=== PATIENT | female | born 1990 | race Caucasian/White ===

== ENCOUNTER 2017-12-15 10:00 | Inpatient (IN) | payer OTHER ==
[~2017-12-15] VITALS: Ht 160 cm; Wt 63.5 kg
[~2017-12-15 10:00] MED LIST: CIPROFLOXACIN500 M1 PO; DAYSEE 0.15-0.1 EACH PO; HYDROCODON-ACE1 EAC7; HYDROCODONE-APA1 TA1 PO; IBUPROFEN 600600 M1 PO; IRON325; PEPCID20 MG PO; PRENATAL MULTI1 EAC3 PO; TRINATE TABLET1 TAB PO; VICODIN 5-3001 EACH; ZOFRAN ODT4 MG PO; ZOFRAN4 MG PO
[2017-12-15 10:09] VITALS: BP 123/63
[2017-12-15 11:00] LABS: ABSOLUTE BASOPHILS 0.1 thou/uL (0.0-0.2); ABSOLUTE EOSINOPHILS 0.1 thou/uL (0.0-0.7); ABSOLUTE LYMPHOCYTES 2.2 thou/uL (0.8-5.3); ABSOLUTE MONOCYTES 0.6 thou/uL (0.0-1.2); ABSOLUTE NEUTROPHILS 10.4 thou/uL (1.6-8.1); BASOPHILS 0.4 %; EOSINOPHILS 0.9 %; HEMATOCRIT 40.3 % (37.0-47.0); HEMOGLOBIN 13.3 gm/dL (12.0-15.0); LYMPHOCYTES 16.6 %; MCH 29.5 pg (26.0-34.0); MCHC 33.1 g/dL (28.0-37.0); MONOCYTES 4.4 %; MPV 8.7 fl. (7.2-11.1); NUCLEATED RBCS 0 /100WBC; PLATELET COUNT* 311 thou/uL (150-400); POLYS 77.7 %; RBC 4.52 mil/uL (4.20-5.00); RDW-CV 13.8 % (10.5-14.5); URINE BILIRUBIN NEGATIVE (Negative); URINE BLOOD NEGATIVE (Negative); URINE CLARITY CLEAR; URINE COLOR YELLOW; URINE GLUCOSE-RANDOM NEGATIVE (Negative); URINE KETONES NEGATIVE (Negative); URINE LEUKOCYTES-REFLEX NEGATIVE (Negative); URINE NITRITE-REFLEX NEGATIVE (Negative); URINE PROTEIN NEGATIVE (Negative); URINE UROBILINOGEN 0.2 E.U./dl (0.2-1.0); WBC 13.4 thou/uL (4.0-11.0)
[2017-12-15 11:09] LABS: CALCIUM 8.7 mg/dL (8.5-10.1); CREATININE 0.9 mg/dL (0.6-1.3); POTASSIUM 3.5 mmol/L (3.5-5.1)
[2017-12-15 11:14] LABS: ALBUMIN 3.7 g/dL (3.4-5.0); TOTAL BILIRUBIN 0.7 mg/dL (<0.1-1.0); TOTAL PROTEIN 7.1 g/dL (6.4-8.2)
[2017-12-15 14:10] VITALS: BP 106/64
[2017-12-15 14:35] VITALS: BP 113/53
[2017-12-15 20:15] VITALS: BP 73/40
[2017-12-15 22:32] VITALS: BP 92/42
[2017-12-15 23:39] VITALS: BP 87/41
[2017-12-16] VITALS (11 sets, daily range): BP systolic 83–101; BP diastolic 34–61
[2017-12-16 04:31] LABS: ABSOLUTE LYMPHOCYTES 1.7 thou/uL (0.8-5.3); ABSOLUTE NEUTROPHILS 11.5 thou/uL (1.6-8.1); BASOPHILS 0.2 %; EOSINOPHILS 0.3 %; HEMATOCRIT 34.4 % (37.0-47.0); LYMPHOCYTES 12.1 %; MCH 29.6 pg (26.0-34.0); MCV 89.8 fL (80.0-100.0); MONOCYTES 6.7 %; NUCLEATED RBCS 0 /100WBC; PLATELET COUNT* 247 thou/uL (150-400); POLYS 80.7 %; RBC 3.83 mil/uL (4.20-5.00); WBC 14.2 thou/uL (4.0-11.0)
[2017-12-16 05:10] LABS: ALBUMIN 2.8 g/dL (3.4-5.0); CALCIUM 7.8 mg/dL (8.5-10.1); CREATININE 0.9 mg/dL (0.6-1.3); POTASSIUM 4.1 mmol/L (3.5-5.1); TOTAL BILIRUBIN 0.9 mg/dL (<0.1-1.0); TOTAL PROTEIN 5.4 g/dL (6.4-8.2)
[2017-12-16 05:35] LABS: HEMOGLOBIN 11.3 gm/dL (12.0-15.0)
[2017-12-17 04:00] VITALS: BP 96/48
[2017-12-17 04:17] LABS: HEMATOCRIT 32.3 % (37.0-47.0); HEMOGLOBIN 10.7 gm/dL (12.0-15.0); MCH 29.6 pg (26.0-34.0); MCV 89.6 fL (80.0-100.0); MPV 8.6 fl. (7.2-11.1); NUCLEATED RBCS 0 /100WBC; PLATELET COUNT* 242 thou/uL (150-400); RBC 3.61 mil/uL (4.20-5.00); WBC 12.1 thou/uL (4.0-11.0)
[2017-12-17 04:34] LABS: ALBUMIN 2.6 g/dL (3.4-5.0); CALCIUM 8.3 mg/dL (8.5-10.1); CREATININE 0.9 mg/dL (0.6-1.3); TOTAL BILIRUBIN 0.4 mg/dL (<0.1-1.0); TOTAL PROTEIN 5.8 g/dL (6.4-8.2)
[2017-12-17 06:17] LABS: ABSOLUTE BASOPHILS 0.1 thou/uL (0.0-0.2); ABSOLUTE LYMPHOCYTES 1.3 thou/uL (0.8-5.3); ABSOLUTE MONOCYTES 0.6 thou/uL (0.0-1.2); PLATELET ESTIMATE ADEQUATE
[2017-12-17 06:18] LABS: ANISOCYTOSIS 1+; HYPOCHROMASIA 1+
[2017-12-17 09:15] VITALS: BP 112/61
[2017-12-17 16:00] VITALS: BP 104/62
[2017-12-17 20:00] VITALS: BP 96/60
[2017-12-18 00:05] VITALS: BP 104/51
[2017-12-18 00:28] LABS: BE -3.2 mmol/L (-2 to +3); HCO3 20.6 mmol/L (22.0-26.0); PCO2 33.3 mmHg (35.0-45.0); PO2 83.1 mmHg (75.0-100.0)
[2017-12-18 03:30] VITALS: BP 101/63
[2017-12-18 04:15] LABS: ABSOLUTE BASOPHILS 0.1 thou/uL (0.0-0.2); ABSOLUTE EOSINOPHILS 0.2 thou/uL (0.0-0.7); ABSOLUTE LYMPHOCYTES 2.8 thou/uL (0.8-5.3); ABSOLUTE MONOCYTES 0.7 thou/uL (0.0-1.2); ABSOLUTE NEUTROPHILS 6.6 thou/uL (1.6-8.1); BASOPHILS 0.5 %; EOSINOPHILS 1.9 %; HEMOGLOBIN 10.6 gm/dL (12.0-15.0); LYMPHOCYTES 27.1 %; MCH 29.9 pg (26.0-34.0); MCHC 33.3 g/dL (28.0-37.0); MCV 89.8 fL (80.0-100.0); MONOCYTES 7.1 %; MPV 8.6 fl. (7.2-11.1); NUCLEATED RBCS 0 /100WBC; PLATELET COUNT* 238 thou/uL (150-400); POLYS 63.4 %; RBC 3.56 mil/uL (4.20-5.00); RDW-CV 14.1 % (10.5-14.5); WBC 10.4 thou/uL (4.0-11.0)
[2017-12-18 04:52] LABS: ALBUMIN 2.7 g/dL (3.4-5.0); CALCIUM 7.9 mg/dL (8.5-10.1); CREATININE 0.9 mg/dL (0.6-1.3); POTASSIUM 3.2 mmol/L (3.5-5.1); TOTAL BILIRUBIN 0.3 mg/dL (<0.1-1.0); TOTAL PROTEIN 5.8 g/dL (6.4-8.2)
[2017-12-18 08:05] VITALS: BP 105/56
[2017-12-18] MEDS ORDERED: ONDANSETRON HCL4 M2 PO (11:15)
[2017-12-18] MEDS ORDERED: HYDROCODON-ACE1 EAC7 PO (11:16)
[2017-12-18 11:26] VITALS: BP 105/56
[2017-12-18] MEDS ORDERED: COLACE100 MG PO (11:57)
[2017-12-18] MEDS ORDERED: MIRALAX17 GM PO (11:58)
--- NOTE | 2017-12-19 14:59 | S ---
[place] [address] SURGICAL PATH RPT PROCEDURE Name: JUDY,AMYENI Chance Room: [address] IN [facility].#: [id number] Admission: 12/15/17 Date of : 88 Discharge: 12/18/17 Report #: [id number] Path Case #: [id number] PATHOLOGY REPORT COLLECTION DATE: 12/16/2017 RECEIVED DATE: 12/18/2017 SUBMITTING PHYS: Dr. Ac Ch OTHER PHYS: Dr. Lawson Green SPECIMEN(S) RECEIVED: A.Appendix * * * * * * * * * * * * FINAL DIAGNOSIS: Appendix: - Acute appendicitis, periappendicitis and serositis. (NANY:mml; 12/19/2017) PATHOLOGIST: Gilson Weston M.D. REPORT ELECTRONICALLY SIGNED BY: Gilson Weston M.D. DATE/TIME: 12/19/2017 14:58 * * * * * * * * * * * * GROSS PATHOLOGY: Received in formalin labeled "Judy Paulyeni, appendix," is an appendix measuring 7.0 cm in length and 0.8 cm in diameter with a moderate amount of attached mesoappendix. The serosal surface is reese with a small amount of overlying adhesions. Sectioning reveals a patent lumen containing brown fecal material. Welding Manager sections are submitted in cassette A1. (SDY; 12/18/2017) CLINICAL HISTORY: Abdominal pain INITIAL CPT CODE(S): A; 15327 Professional services performed by [facility] at [facility], [address] [place] [address], [place] [address]. Technical services performed by [facility] at [address] [place] [address], [facility] [address] [address]. [facility] [address] [facility] [place] [address] SURGICAL PATH RPT PROCEDURE Name: DARCY KIM Room: [address]#: [id number] Admission: 12/15/17 Date of : 88 Discharge: 12/18/17 Report #: [id number] Path Case #: [id number] [address] PHONE: [phone] DIRECTOR: Juan Ken M.D. * * * END OF REPORT * * *
[2017-12-26] MEDS ORDERED: LEVSIN0.125 MG PO (14:35)
--- NOTE | 2018-01-02 13:04 | OP ---
[address] [address] OPERATIVE REPORT Name: JUDYDARCY Room: [address] IN M.R.#: [id number] Admission: 12/15/17 Attend Phys: Arturo Pittman Discharge: 12/18/17 Date of : 88 Report #: [id number] THIS REPORT FOR: //name// CC: [facility] physician/PCP Lawson Méndez SURGEON: Miguel A Green MD. PREOPERATIVE DIAGNOSES: Right ureteral stone and also possible appendicitis. POSTOPERATIVE DIAGNOSES: Right ureteral stone and also possible appendicitis. PROCEDURE: Induction cystoscopy, right retrograde pyelogram, right double-J stent placement. COMPLICATIONS: None. INDICATIONS: This is a 27-year-old white female who came in with right-sided abdominal pain. CT showed a stone near the iliac vessels. However, on my exam today, I believe that the patient had a definite acute abdominal tenderness consistent with appendicitis and I have called Dr. Ch, who is also going to explore the patient for possible appendicitis. The patient did have a stone during back in April. She did not follow up for the stone, so she did not know if the stone had passed, but as far as she knows, she was not having any other flank pain. She said that the pain she is having now is not consistent with her stone pain, but the CT definitely does confirm she has a distal ureteral stone. She presents now for right retrograde pyelogram, double-J stent. She and her mother and boyfriend were all informed that the stent is a temporary measure that she will eventually need. Other treatment to rid her of the stone would be a ureteroscopy or ESWL which will require another procedure and that the stent will eventually need to be removed. They all voiced understanding of this and wished to proceed. DESCRIPTION OF PROCEDURE: Informed consent was obtained. The patient was sterilely prepped and draped in dorsolithotomy position and given appropriate antibiotics. Cystoscopy was carried out. No abnormalities seen in the bladder. Right retrograde pyelogram was performed, which showed the filling defect near the iliac vessels. It was approximately 6 mm in length and there is also possible another 3 mm stone next to it. A 4.8 x 28 stent was then placed showing good curl in the kidney and good curl in the bladder. She did have a hydronephrotic drip and had moderate amount of hydronephrosis above the stone. The stent was in good position with a good curl in the kidney [place] [address] OPERATIVE REPORT Name: JUDYPAULNNAMDI Fletcher Room: [address]#: [id number] Admission: 12/15/17 Attend Phys: Arturo Pittman Discharge: 12/18/17 Date of : 88 Report #: [id number] the bladder. A Boone catheter was placed. The patient tolerated this well and was taken to recovery room in good condition. <ELECTRONICALLY SIGNED> By: Miguel A Green MD 01/02/18 1304 1202 [id number] A Green MD /nt
--- NOTE | 2018-01-17 09:47 | OP ---
[facility] [address] [place] [address] OPERATIVE REPORT Name: DARCY KIM Room: [address]R.#: [id number] Admission: 12/15/17 Attend Phys: Arturo Pittman Discharge: 12/18/17 Date of : 88 Report #: [id number] THIS REPORT FOR: //name// CC: [facility] physician/PCP Lawson Méndez DO DATE OF SERVICE: 12/16/2017 PREOPERATIVE DIAGNOSES: Acute appendicitis and right ureteral stone. POSTOPERATIVE DIAGNOSES: Acute appendicitis and right ureteral stone. PROCEDURE: Laparoscopic appendectomy. SURGEON: Ac Ch DO. [employer] COURT ASSOCIATE JUSTICE: Caesar Foster DO. ANESTHESIA: General endotracheal. ESTIMATED BLOOD LOSS: 20 mL. COMPLICATIONS: None. DESCRIPTION OF PROCEDURE: After obtaining proper consents and discussing risks and complications, the patient was taken to the operating room where a cystoscopy and stent placement performed by Dr. Green. Please see his operative report for full details. Following his procedure, we then prepped and draped the patient in the usual sterile fashion for a laparoscopic appendectomy. Once she was prepped and draped, a timeout was performed. We confirmed the appropriate patient and procedure. We then made an infraumbilical curvilinear skin incision with a #11 scalpel blade. This was carried down through the skin into the subcutaneous tissue using electrocautery for hemostasis. Once the fascia was encountered, it was incised along the midline, grasped and elevated with [facility] clamps and divided further. The peritoneum was then bluntly opened using a hemostat. A finger was placed inside the peritoneal cavity to assure there were no shamika-incisional adhesions. Next, 2-0 Vicryl sutures were placed in a [id number] fashion to secure the Lesley trocar, which was then inserted and insufflation was begun. Once insufflation was complete, full visual inspection of the anterior abdominal organs was performed. This revealed no significant gross abnormalities. Immediately, we then placed the patient in Trendelenburg position and rotated her to the left. We were then able to visualize the cecum. There did appear to be some inflammation in this area. We then placed a 5 mm suprapubic trocar and using the laparoscopic Terry clamp, we were able to elevate the cecum and identify the [place] [address] OPERATIVE REPORT Name: DARCY KIM Room: [address]#: [id number] Admission: 12/15/17 Attend Phys: Arturo Pittman Discharge: 12/18/17 Date of : 88 Report #: [id number] definitely inflamed. We then placed another 12 mm trocar in the left lower quadrant. The mesoappendix was then grasped and elevated and sequentially clamped and divided using the Harmonic scalpel until the appendix was attached only at its base. We then used an Endo-JUDY 30 mm 3.5 mm staple load to divide the base of the appendix. Once this was divided, there did appear to be some bleeding from the staple line. We cauterized this and it stopped immediately. The appendix was then placed into an Endopouch. We copiously irrigated the area and assured hemostasis again in both the mesoappendix and the appendiceal stump. These both appeared dry. We then placed the patient back into the normal supine position. We then removed the 12 mm left lower quadrant trocar and then, using a Charlie-Taylor closure device closed the fascia using 0 Vicryl suture. We then removed the remaining trocars. The insufflation was stopped, all air was released. The appendix was removed through the umbilical incision. The umbilical fascia was then closed using the 2 previously placed 0 Vicryl sutures plus 2 additional 0 Vicryl sutures. Skin incisions were all closed using 4-0 Monocryl. We then used Dermabond on the skin closures. The patient tolerated the procedure well. Sponge, needle and instrument counts were all correct at the end of the procedure. <ELECTRONICALLY SIGNED> By: Ac Ch DO 01/17/18 0947 1230 [id number] Ch DO /nt
== END 2017-12-18 13:24 | disposition home or self-care (01) | DRG 339 ==
LOC: M.ERS 10:00 → M.TBA-ER 12:35 → M.3W 12:35
PROVIDERS: Emergency Medicine Emergency Medical Services; Surgery; ADMIT Internal Medicine
PROC: 0T768DZ Dilation of Right Ureter with Intraluminal Device, Via Natural or Artificial Opening Endoscopic (ICD-10-PCS; principal; 2017-12-16)
PROC: 0DTJ4ZZ Resection of Appendix, Percutaneous Endoscopic Approach (ICD-10-PCS; principal; 2017-12-16)
PROC: BT1D1ZZ Fluoroscopy of Right Kidney, Ureter and Bladder using Low Osmolar Contrast (ICD-10-PCS; principal; 2017-12-16)
DX: K35.3 Acute appendicitis with localized peritonitis (principal); N13.2 Hydronephrosis with renal and ureteral calculous obstruction; R65.10 Systemic inflammatory response syndrome (SIRS) of non-infectious origin without acute organ dysfunction; G43.909 Migraine, unspecified, not intractable, without status migrainosus; Z91.040 Latex allergy status

== ENCOUNTER → 2018-01-02 | Day surgery (SDC) | payer OTHER ==
[~2018-01-02] MED LIST changes: +COLACE100 MG PO; +HYDROCODON-ACE1 EAC7 PO; +LEVSIN0.125 MG PO; +MIRALAX17 GM PO; +ONDANSETRON HCL4 M2 PO
--- NOTE | 2018-01-10 15:28 | OP ---
[address] [address] OPERATIVE REPORT Name: DARCY KIM Room: [facility]#: [id number] Admission: 01/02/18 Attend Phys: Kei Jiménez Discharge: Date of : 88 Report #: [id number] THIS REPORT FOR: //name// CC: Miguel A Green [facility] physician/PCP SURGEON: Miguel A Green MD. PREOPERATIVE DIAGNOSIS: Right ureteral stone. POSTOPERATIVE DIAGNOSIS: Right ureteral stone. PROCEDURE: Panendoscopy, cystoscopy, right retrograde pyelogram, removal of right double-J stent, replacement of double-J stent, ureteroscopy, holmium laser of stone and extraction of stone. No complication. INDICATIONS: This is a 27-year-old white female who had a ureteral stent placed approximately 2 weeks ago at the time of appendectomy. She presents now for ureteroscopy. She understands risks of bleeding, infection, need for another procedure, cardiovascular and pulmonary complications and wished to proceed. She understands the stent needs to be removed in about 1 week. DESCRIPTION OF PROCEDURE: The patient was sterilely prepped and draped in dorsal lithotomy position and given appropriate antibiotics. Cystoscopy was carried out. No abnormalities seen in the bladder. The stent was removed under fluoroscopic guidance. A retrograde pyelogram was performed. Stone was seen in the distal ureter. She had no other stones in the kidneys by CT scan. Ureteroscopy was carried out using a sensor wire, was saved as a safety wire. The stone was broken into 2 and 3 mm pieces and smaller, all of which were extracted using a 0 tip nitinol basket, and then, the ureteroscopy was then carried out to the ureteropelvic junction. There were no other stone fragments. A 4.8 x 28 stent was then placed showing good curl in the kidney and good curl in the bladder. The patient tolerated this well. <ELECTRONICALLY SIGNED> By: Miguel A Green MD 01/10/18 1528 1244 [id number] Green MD /nt
== END | disposition home or self-care (01) ==
LOC: M.SUR 08:31
DX: N20.1 Calculus of ureter (principal); Z98.890 Other specified postprocedural states; Z91.040 Latex allergy status; Z79.899 Other long term (current) drug therapy

== ENCOUNTER → 2018-01-08 | Outpatient (CLI) | payer OTHER | LOC: M.RAD 08:39 | DX: N20.0 Calculus of kidney (principal); Z96.0 Presence of urogenital implants ==